=== PATIENT | female | born 1950 | race Caucasian/White ===

== ENCOUNTER 2017-09-06 02:12 | Emergency (ER) | payer OTHER ==
[2017-09-06 02:19] VITALS: BP 128/74; PULSE 79; TEMP 98; BMI 31.6
--- NOTE | 2017-09-06 04:24 | PDOC ---
History of Present Illness - General Chief Complaint: Pain, Acute Stated Complaint: NECK PAIN/SPASMS Time Seen by Provider: 09/06/17 03:49 History Source: Patient Exam Limitations: No Limitations - History of Present Illness Initial Comments: 09/06/17 04:20 67 F with PMH s/p aortic valve replacement (2016), HTN, HLD, migraines, who presents to the ED c/o gradually worsening L-sided neck pain over the past two weeks. As per pt, her neck pain is a/w a throbbing sensation as well as spasms. She went to Dr. Troncoso recently and had a neck X-ray done which showed arthritis. She also had a CT neck done (end of Aug 2016) which revealed mid to moderate degenerative changes with b/l hypertrophy and impingement of C6 nerve roots. During this time, pt also endorses nausea (without emesis), generalized ARIZMENDI, and dizziness. Otherwise, denies fever, chills, or changes in urinary or bowel function. PMH: as above PsxH: as above, anterior cervical decompression () meds: procardia XL 90mg qd, lisinopril 40mg qd, metoprolol 25mg BID, fish oil 1200mg qd, Calcium and vitamin D 1200 mg, Lipitor 40mg qd, aspirin 81 mg qd allergies: sulfa, percocets, nsaids- throat closes up, emesis, erythema FH: mother - DM, HTN. 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 Stopped smoking 2 yrs ago, but had smoked 5 cigs/day for 15 yrs prior. Rarely drinks alcohol, denies recreational drug use Past History - Past Medical History Allergies/Adverse Reactions: Allergies Allergy/AdvReac Type Severity Reaction Status Date / Time latex Allergy Severe Difficulty Verified 07/21/15 08:48 Breathing Sulfa (Sulfonamide Allergy Severe Swelling Verified 07/21/15 08:48 Antibiotics) oxycodone HCl [From Percocet] Allergy Mild NAUSEA/VOMI Verified 07/21/15 08:48 TING NSAIDS (Non-Steroidal Allergy Difficulty Verified 07/21/15 08:48 Anti-Inflamma Breathing Home Medications: Ambulatory Orders Acetaminophen [Tylenol .Regular Strength -] 650 mg PO Q6H PRN #0 tablet Lisinopril [Prinivil] 20 mg PO DAILY #0 tablet 11/17/13 Atenolol [Tenormin -] 25 mg PO DAILY 06/26/14 Atorvastatin Ca [Lipitor] 10 mg PO DAILY 06/26/14 Docosahexanoic Acid/Epa [Fish Oil Softgel] 1 each PO BID 06/26/14 Multivitamins [Multivit ([facility] Formulary)] 1 tab PO DAILY 06/26/14 Nifedipine [Procardia Xl] 90 mg PO DAILY 06/26/14 Salmeterol/Fluticasone [Advair 250Mcg/50Mcg -] 1 inh PO BID 06/26/14 Diphenhydramine HCl [Benadryl Capsule -] 25 mg PO Q6H #30 capsule 08/18/14 EPINEPHrine (EPI-PEN 0.3MG) [Epipen 0.3MG -] 0.3 mg IM PRN PRN #2 syr 08/18/14 Ranitidine HCl [Zantac 75] 75 mg PO DAILY #4 tablet 08/18/14 predniSONE [Deltasone -] 40 mg PO DAILY #8 tablet 08/18/14 predniSONE [Deltasone -] 40 mg PO DAILY #8 tablet 08/29/14 Ondansetron HCl [Zofran] 4 mg PO DAILY PRN #8 tablet 09/06/17 Tramadol HCl [Ultram] 50 mg PO DAILY PRN #15 tablet MDD 50 09/06/17 Tramadol HCl [Ultram] 50 mg PO QID #20 tablet MDD 200 09/06/17 Cardiac Disorders: Yes (MURMUR) HTN: Yes Hypercholesterolemia: Yes - Surgical History Cardiac Surgery: Yes (VALVE REPLACE: 08/15/14) - Immunization History Immunization Up to Date: Yes - Suicide/Smoking/Psychosocial Hx Smoking Status: Yes Smoking History: Never smoked Have you smoked in the past 12 months: No Number of Cigarettes Smoked Daily: 2 If you are a former smoker, when did you quit?: 2 YRS Information on smoking cessation initiated: No 'Breaking Loose' booklet given: 11/13/13 Hx Alcohol Use: No Drug/Substance Use Hx: No Substance Use Type: None Hx Substance Use Treatment: No Review of Systems - Review of Systems Able to Perform ROS?: Yes Is the patient limited Luxembourgish proficient: No ABD/GI: Yes: Nausea Musculoskeletal: Yes: Neck Pain Neurological: Yes: Headache All Other Systems: Reviewed and Negative *Physical Exam - Vital Signs Last Vital Signs Temp Pulse Resp BP Pulse Ox 98.0 F 79 18 128/74 98 09/06/17 02:16 09/06/17 02:16 09/06/17 02:16 09/06/17 02:16 09/06/17 02:16 - Physical Exam General Appearance: Yes: Other (+neck spasms, appears uncomfortable ) HEENT: positive: EOMI, DELLA Neck: positive: Tender (+TTP L side, +neck spasms ) Respiratory/Chest: positive: Lungs Clear, Normal Breath Sounds Cardiovascular: positive: Regular Rhythm, Regular Rate, S1, S2 Vascular Pulses: Dorsalis-Pedis (R): 2+, Doralis-Pedis (L): 2+ Musculoskeletal: positive: Decreased Range of Motion (+decreased active and passive ROM in L neck ) Neurologic: positive: tdp displays analyst II-XII NML intact Medical Decision Making - Medical Decision Making 09/06/17 04:39 67 F with PMH s/p aortic valve replacement (2016), HTN, HLD, migraines, who presents to the ED c/o gradually worsening L-sided neck pain over the past two weeks. Pt most likely with sx of cervical nerve impingement - seen on CT. Will send home with zofran and tramadol and suggest f/u with Dr. Troncoso. *DC/Admit/Observation/Transfer Diagnosis at time of Disposition: Neck muscle spasm - Discharge Dispostion Disposition: HOME Condition at time of disposition: Stable Admit: No - Prescriptions Prescriptions: Ondansetron HCl [Zofran] 4 mg PO DAILY PRN #8 tablet PRN Reason: Nausea Tramadol HCl [Ultram] 50 mg PO DAILY PRN #15 tablet MDD 50 PRN Reason: Moderate Pain Tramadol HCl [Ultram] 50 mg PO QID #20 tablet MDD 200 - Referrals Referrals: Cleveland Gan MD [Primary Care Provider] - - Patient Instructions Additional Instructions: You were in the emergency room for neck spasms. You recently had a CT done which revealed moderate degenerative disc disease with bilateral hypertrophy, causing possible impingement of your C6 nerve roots. This most likely explains your pain. We are sending a prescription for tramadol and zofran to your pharmacy. We suggest that you follow up with your primary doctor, Dr. Troncoso in a week to go over your CT results in depth. We hope you feel better soon. - Post Discharge Activity Forms/Work/School Notes: Back to Work
--- NOTE | 2017-09-06 04:27 | PDOC ---
Attending Attestation - HPI HPI: 09/06/17 04:34 The patient is a 67 year old female with a past medical history of HTN, hyperlipidemia, and aortic valve replacement (2016) who presents to the emergency department with gradually worsening neck pain for 2 weeks. The patient describes her pains as spasm and stiffness. She note that she recently visited with Dr. Gan, received a CT, and was diagnosed with pinched C6 nerve roots. She endorses associated difficulty moving her neck and nausea. She denies any vomiting or other associated symptoms. - Medical Decision Making 09/06/17 04:34 Documentation prepared by Alberto Eagle, acting as medical unit secretary for Vitor Salcedo DO. <Alberto Eagle - Last Filed: 09/06/17 04:34> - Resident Resident Name: Emi Kingston - ED Attending Attestation I have performed the following: I have examined & evaluated the patient, The case was reviewed & discussed with the resident, I agree w/resident's findings & plan, Exceptions are as noted - Physicial Exam PE: 09/06/17 04:44 *Physical Exam General Appearance: Yes: Appropriately Dressed. No: Apparent Distress, Intoxicated HEENT: positive: EOMI, DELLA, Normal ENT Inspection, Normal Voice, TMs Normal, Pharynx Normal. negative: Pale Conjunctivae, Photophobia, Scleral Icterus (R), Scleral Icterus (L) Neck: positive: Trachea midline, Normal Thyroid, Supple. negative: Tender, Rigid, Carotid bruit, Stridor, Lymphadenopathy (R), Lymphadenopathy (L), Thyromegaly Respiratory/Chest: positive: Lungs Clear, Normal Breath Sounds. negative: Chest Tender, Respiratory Distress, Accessory Muscle Use, Labored Respiration, RES, Crackles, Rales, Rhonchi, Stridor, Wheezing, Dullness Cardiovascular: positive: Regular Rhythm, Regular Rate, S1, S2. negative: Edema , JVD, Murmur, Bradycardia, Tachycardia Vascular Pulses: Dorsalis-Pedis (R): 2+, Doralis-Pedis (L): 2+ Gastrointestinal/Abdominal: positive: Normal Bowel Sounds, Flat, Soft. negative : Tender, Organomegaly, Pulsatile Mass, Increased Bowel Sounds, Decreased BS, Distended, Guarding, Rebound, Hernia, Hepatomegaly, Spleenomegaly Lymphatic: negative: Adenopathy, Tenderness Musculoskeletal: positive: Normal Inspection. negative: CVA Tenderness, Decreased Range of Motion Extremity: positive: Normal Capillary Refill, Normal Inspection, Normal Range of Motion, Pelvis Stable. negative: Tender, Pedal Edema, Swelling, Erythema Integumentary: positive: Normal Color, Dry, Warm. 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 negative: EOM Palsy, Facial Droop, Sensory Deficit <Vitor Salcedo - Last Filed: 09/06/17 04:44>
[2017-09-06] MEDS ORDERED: traMADol HCL 50 MG TABLET PO ONE (04:31)
[2017-09-06] MEDS ORDERED: ONDANSETRON 4 MG/2 ML VIAL IVPUSH ONE (04:32)
[2017-09-06] MEDS ORDERED: ONDANSETRON *ODT* 4 MG TABLET SL ONE (04:46)
[2017-09-06] MEDS ORDERED: traMADol HCL 50 MG TABLET ONE (04:46)
[2017-09-06] MEDS ORDERED: ONDANSETRON *ODT* 4 MG TABLET ONE (04:47)
== END 2017-09-06 05:06 | disposition home or self-care (01) ==
LOC: JER 02:12
DX: M62.838 Other muscle spasm (principal); M46.82 Other specified inflammatory spondylopathies, cervical region; I10 Essential (primary) hypertension; E78.00 Pure hypercholesterolemia, unspecified; R01.1 Cardiac murmur, unspecified; Z95.2 Presence of prosthetic heart valve; Z87.891 Personal history of nicotine dependence
CPT/HCPCS: 99281-25

== ENCOUNTER 2018-03-13 16:35 | Emergency (ER) | payer OTHER ==
[2018-03-13 16:42] VITALS: BMI 33.7
--- NOTE | 2018-03-13 16:42 | PDOC ---
Rapid Medical Evaluation Time Seen by Provider: 03/13/18 16:39 Medical Evaluation: Allergies Allergy/AdvReac Type Severity Reaction Status Date / Time latex Allergy Severe Difficulty Verified 07/21/15 08:48 Breathing Sulfa (Sulfonamide Allergy Severe Swelling Verified 07/21/15 08:48 Antibiotics) oxycodone HCl [From Percocet] Allergy Mild NAUSEA/VOMI Verified 07/21/15 08:48 TING NSAIDS (Non-Steroidal Allergy Difficulty Verified 07/21/15 08:48 Anti-Inflamma Breathing 03/13/18 16:40 Pt c/o: sob since this am, lt sidied cp last night resolved within minutes, states increased stress x 2 weeks, no fever, calf pain, hx of htn and asthma pt on brief exam: LCTA, RRR, vss, no LLE edema Pt ordered for: pt to proceed to the ED Discharge Disposition - Diagnosis Shortness of breath - Referrals - Patient Instructions - Post Discharge Activity
--- NOTE | 2018-03-13 19:18 | PDOC ---
Attending Attestation - HPI HPI: 03/13/18 20:10 The patient is a 68 year old female, with a significant past medical history of HTN, HLD, Aortic valve replacement 2014, who presents to the ED complaining of shortness of breath for the past 2-3 weeks that has exacerbated today. She notes that she had a fever previously and her primary care provider prescribed her a Z-Dimitrios. She reports that humid environments seem to exacerbate her shortness of breath. She also reports chest pain and a mild cough which is productive of a clear sputum. She notes that her chest pain last night was mild , without radiation or modifying factors. The patient denies headache and dizziness. Denies fever, chills, nausea, vomiting, diarrhea or constipation. Denies dysuria, frequency, urgency and hematuria. Allergies: Sulfa, latex, percocer, NSAIDS Past surgical history: Valve replacement Social History: occasional alcohol use. Quit smoking 2014. - Physicial Exam PE: 03/13/18 20:11 Constitutional: Awake, alert, oriented. No acute distress. Head: Normocephalic. Atraumatic Eyes: PERRL. EOMI. Conjunctivae are not pale. ENT: Mucous membranes are moist and intact. Posterior pharynx without exudates or erythema. Uvula midline. Neck: Supple. Full ROM. No lymphadenopathy. Cardiovascular: Regular rate. Regular rhythm. S1, S2 regular. Distal pulses are 2+ and symmetric. Pulmonary/Chest: No evidence of respiratory distress. Clear to auscultation bilaterally No wheezing, rales or rhonchi. Abdominal: Soft and non-distended. There is no tenderness. No rebound, guarding or rigidity. No organomegaly. No palpable masses. Good bowel sounds. Back: No CVA tenderness. Musculoskeletal: No edema. No cyanosis. No clubbing. Full range of motion in all extremities. Nocalf tenderness. Radial/pedal pulses are intact and 2+ bilaterally Skin: Skin is warm and dry. No petechiae. No purpura. Neurological: Alert and oriented to person, place, and time. Cranial nerves II -XII are grossly intact. Normal speech. Strength is grossly symmetric. No sensory deficits. Psychiatric: Good eye contact. Normal interaction, affect and behavior. <Vitor English - Last Filed: 03/13/18 20:10> - Resident Resident Name: Alyse Lundberg - ED Attending Attestation I have performed the following: I have examined & evaluated the patient, The case was reviewed & discussed with the resident, I agree w/resident's findings & plan, Exceptions are as noted - Medical Decision Making 03/13/18 19:18 I, Dr. Rohini Coburn, DO, attest that this document has been prepared under my direction and personally reviewed by me in its entirety. I further attest, that it accurately reflects all work, treatment, procedures and medical decision -making performed by me. 03/13/18 20:38 a/p: 68yo female with SOB when she walks outside -recent URI, now with mild sob when she walks into the heat - reactive airway disease from humidity and recent URI -will send labs, ekg, cxr -will give nebulizer -will monitor and reassess -pt speaking in full sentences -sob resolves with AC -pt is nontoxic in appearance <Rohini Coburn - Last Filed: 03/13/18 20:40> Heart Score/ECG Review - ECG Intrepretation Comment:: 03/13/18 19:41 sinus at 77, nl axis, nl interval, t wave inversions avl otherwise no acute st/ t wave findings <Rohini Coburn - Last Filed: 03/13/18 20:40>
--- NOTE | 2018-03-13 19:36 | PDOC ---
History of Present Illness - General Chief Complaint: Shortness of Breath Stated Complaint: SHORTNESS OF BREATH Time Seen by Provider: 03/13/18 16:39 History Source: Patient Exam Limitations: No Limitations - History of Present Illness Initial Comments: 03/13/18 19:31 Pt is a 68yo f with PMH of HTN, HLD, Aortic valve replacement 2014 presenting to ED with SOB. Pt says she has been feeling SOB for the past 2-3 weeks. She had a fever originally, went to her PCP and given Zpak. She states that the humidity and hot weather seems to trigger SOB. She feels fine when she's in a cool room. No orthopnea or SOB with exertion when she's not outside. She admits to chest pain last night near the L breast but it did not radiate, not associated with diaphoresis. She has had cough productive of clear sputum. She denies chest pain, pain radiating to the back or neck, fever, congestion, leg pain, new leg swelling, recent travel. PCP: Malik PMH: see hpi PSH: see hpi Meds: excedrin, metoprolol, lipitor Allergies: narcotics, motrin Social: occasional alcohol use. Quit smoking 2014. Past History - Past Medical History Allergies/Adverse Reactions: Allergies Allergy/AdvReac Type Severity Reaction Status Date / Time latex Allergy Severe Difficulty Verified 03/13/18 16:42 Breathing Sulfa (Sulfonamide Allergy Severe Swelling Verified 03/13/18 16:42 Antibiotics) oxycodone HCl [From Percocet] Allergy Mild NAUSEA/VOMI Verified 03/13/18 16:42 TING NSAIDS (Non-Steroidal Allergy Difficulty Verified 03/13/18 16:42 Anti-Inflamma Breathing tramadol AdvReac Intermediate Nausea Verified 03/13/18 20:49 Home Medications: Ambulatory Orders Acetaminophen [Tylenol .Regular Strength -] 650 mg PO Q6H PRN #0 tablet Lisinopril [Prinivil] 20 mg PO DAILY #0 tablet 11/17/13 Atenolol [Tenormin -] 25 mg PO DAILY 06/26/14 Atorvastatin Ca [Lipitor] 10 mg PO DAILY 06/26/14 Docosahexanoic Acid/Epa [Fish Oil Softgel] 1 each PO BID 06/26/14 Multivitamins [Multivit ([facility] Formul[facility])] 1 tab PO DAILY 06/26/14 Nifedipine [Procardia Xl] 90 mg PO DAILY 06/26/14 Salmeterol/Fluticasone [Advair 250Mcg/50Mcg -] 1 inh PO BID 06/26/14 Diphenhydramine HCl [Benadryl Capsule -] 25 mg PO Q6H #30 capsule 08/18/14 EPINEPHrine (EPI-PEN 0.3MG) [Epipen 0.3MG -] 0.3 mg IM PRN PRN #2 syr 08/18/14 Ranitidine HCl [Zantac 75] 75 mg PO DAILY #4 tablet 08/18/14 predniSONE [Deltasone -] 40 mg PO DAILY #8 tablet 08/18/14 predniSONE [Deltasone -] 40 mg PO DAILY #8 tablet 08/29/14 Ondansetron HCl [Zofran] 4 mg PO DAILY PRN #8 tablet 09/06/17 Tramadol HCl [Ultram] 50 mg PO DAILY PRN #15 tablet MDD 50 09/06/17 Tramadol HCl [Ultram] 50 mg PO QID #20 tablet MDD 200 09/06/17 Albuterol Sulfate Inhaler - [Ventolin HFA Inhaler -] 1 puff IH DAILY #1 inhaler 03/13/18 Asthma: Yes Cardiac Disorders: Yes (MURMUR) COPD: No HTN: Yes Hypercholesterolemia: Yes - Surgical History Cardiac Surgery: Yes (VALVE REPLACE: 08/15/14) - Immunization History Immunization Up to Date: Yes - Suicide/Smoking/Psychosocial Hx Smoking Status: Yes Smoking History: Never smoked Have you smoked in the past 12 months: No Number of Cigarettes Smoked Daily: 2 If you are a former smoker, when did you quit?: 2 YRS 'Breaking Loose' booklet given: 11/13/13 Hx Alcohol Use: No Drug/Substance Use Hx: No Substance Use Type: None Hx Substance Use Treatment: No Review of Systems - Review of Systems Constitutional: No: Chills, Fever, Weakness HEENTM: No: Nose Congestion, Throat Pain Respiratory: Yes: Cough (dry), Shortness of Breath (when outside). No: SOB with Exertion, SOB at Rest Cardiac (ROS): No: Chest Pain, Lightheadedness, Palpitations ABD/GI: No: Constipated, Diarrhea, Nausea, Vomiting, Abdominal cramping : No: Burning, Dysuria Musculoskeletal: No: Back Pain, Muscle Weakness Neurological: No: Headache, Numbness, Paresthesia, Tingling *Physical Exam - Vital Signs Last Vital Signs Temp Pulse Resp BP Pulse Ox 99.2 F 84 18 135/76 99 03/13/18 16:36 03/13/18 16:36 03/13/18 16:36 03/13/18 16:36 03/13/18 16:36 - Physical Exam General Appearance: Yes: Nourished, Appropriately Dressed. No: Apparent Distress HEENT: positive: EOMI, DELLA, Pharynx Normal. negative: Pale Conjunctivae, Scleral Icterus (R), Scleral Icterus (L), Nasal Congestion, Rhinorrhea Neck: positive: Trachea midline, Supple. negative: Carotid bruit, Lymphadenopathy (R), Lymphadenopathy (L) Respiratory/Chest: positive: Lungs Clear, Normal Breath Sounds. negative: Crackles, Rales, Rhonchi, Stridor Cardiovascular: positive: Regular Rhythm, Regular Rate, S1, S2. negative: JVD, Murmur Vascular Pulses: Carotid (R): 2+, Carotid (L): 2+, Dorsalis-Pedis (R): 2+, Doralis-Pedis (L): 2+ Gastrointestinal/Abdominal: positive: Normal Bowel Sounds, Soft. negative: Distended, Guarding, Rebound, Tenderness Musculoskeletal: negative: CVA Tenderness Extremity: positive: Normal Capillary Refill. 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 -Triggered by hot weather. EKG, CXR, labs. Will give duonebs. EKG: nsr. no st elevations or depressions, no peaked T waves CXR: no acute pathology. Most likely reactive airway -labs: wnl. 03/13/18 21:48 Pt getting duoneb. Will reevaluate 03/14/18 06:00 PT feeling much better. Will d/c with albuterol rx. Pt hemodynamically stable, symptom free and ambulatory. dc home . pt agreed with plan and understood return precautions. *DC/Admit/Observation/Transfer Diagnosis at time of Disposition: Shortness of breath - Discharge Dispostion Disposition: HOME Condition at time of disposition: Improved Decision to Admit order: No - Prescriptions Prescriptions: Albuterol Sulfate Inhaler - [Ventolin HFA Inhaler -] 1 puff IH DAILY #1 inhaler - Referrals Referrals: Cleveland Gan MD [Primary Care Provider] - - Patient Instructions Printed Discharge Instructions: DI for Shortness of Breath, DI for Reactive Airway Disease-Adult Additional Instructions: You were seen here today because you were feeling short of breath. Your blood work was normal and other work up was normal. Please follow up with Dr. Gan for further management within the next week. Please come back to the ED if: you continue to feel short of breath, you are unable to take a few steps before feeling short of breath, you develop chest pain, you feel dizzy or lightheaded or if any new concerning symptom develops. Thank you - Post Discharge Activity
[2018-03-13 20:03] LABS: BASO % 0.9 % (0-2.0); EOS % 2.3 % (0-4.5); HEMATOCRIT 38.9 % (32.4-45.2); HEMOGLOBIN 12.7 GM/dL (10.7-15.3); LYMPH % 35.5 % (8-40); MCH 27.6 pg (25.7-33.7); MCHC 32.7 g/dl (32.0-36.0); MEAN CELL VOLUME 84.4 fl (80-96); MEAN PLT VOLUME 8.6 fl (7.5-11.1); MONO % 6.7 % (3.8-10.2); NEUT % 54.6 % (42.8-82.8); PLATELET COUNT 219 K/MM3 (134-434); RBC 4.61 M/mm3 (3.60-5.2); RDW 13.8 % (11.6-15.6); WHITE BLOOD COUNT 6.9 K/mm3 (4.0-10.0)
[2018-03-13] MEDS ORDERED: ALBUTEROL SO4 2.5/IPRATROPIUM 0.5 INH SOL 3 ML VIAL.NEB. NEB ONE ×3 (20:23→21:29)
[2018-03-13 20:28] LABS: ALBUMIN 3.6 g/dl (3.4-5.0); ANION GAP 10 MMOL/L (8-16); BILIRUBIN,TOTAL 0.4 mg/dL (0.2-1.0); BLOOD UREA NITROGEN 19 mg/dL (7-18); CALCIUM 9.2 mg/dL (8.5-10.1); CHLORIDE 110 mmol/L (98-107); CO2 26 mmol/L (21-32); CREATININE 0.6 mg/dL (0.55-1.02); GLUCOSE,RANDOM 107 mg/dL (74-106); SGPT/ALT 22 U/L (12-78); SODIUM 146 mmol/L (136-145); TOT PROT 7.1 g/dl (6.4-8.2)
[2018-03-13 20:30] LABS: URINE APPEARANCE SLCLOUDY; URINE BILIRUBIN NEGATIVE (<2.0 mg/dL); URINE COLOR YELLOW; URINE GLUCOSE (UA) NEGATIVE (NEGATIVE); URINE KETONE NEGATIVE (NEGATIVE); URINE LEUK ESTERASE NEGATIVE (NEGATIVE); URINE NITRITE NEGATIVE (NEGATIVE); URINE PROTEIN NEGATIVE (NEGATIVE); URINE UROBILINOGEN NEGATIVE mg/dL (0.2-1.0)
[2018-03-13 20:31] LABS: ALK PHOS 111 U/L (45-117)
[2018-03-13 20:33] LABS: MAGNESIUM 2.2 mg/dL (1.8-2.4); POTASSIUM 4.4 mmol/L (3.5-5.1); SGOT/AST 19 U/L (15-37)
[2018-03-13 20:35] LABS: INR 1.06 (0.83-1.09)
[2018-03-13 22:27] VITALS: BP 135/70; PULSE 72; TEMP 98.7
--- NOTE | 2018-03-14 15:56 | EKG ---
Test Reason : Blood Pressure : / mmHG Vent. Rate : 077 BPM Atrial Rate : 077 BPM P-R Int : 144 ms QRS Dur : 074 ms QT Int : 376 ms P-R-T Axes : 049 007 071 degrees QTc Int : 425 ms NORMAL SINUS RHYTHM POSSIBLE LEFT ATRIAL ENLARGEMENT BORDERLINE ECG WHEN COMPARED WITH ECG OF 26-JUN-2014 11:34, NO SIGNIFICANT CHANGE WAS FOUND Confirmed by CARLA SAM MD ([id number]) on 03/14/2018 3:56:43 PM Referred By: Confirmed By:CARLA SAM MD
== END 2018-03-13 22:25 | disposition home or self-care (01) ==
LOC: JER 16:35
PROC: 3E0F7GC Introduction of Other Therapeutic Substance into Respiratory Tract, Via Natural or Artificial Opening (ICD-10-PCS; principal; 2018-03-13)
PROC: 3E0F7GC Introduction of Other Therapeutic Substance into Respiratory Tract, Via Natural or Artificial Opening (ICD-10-PCS; 2018-03-13)
DX: J45.909 Unspecified asthma, uncomplicated (principal); I10 Essential (primary) hypertension; E78.00 Pure hypercholesterolemia, unspecified; Z95.2 Presence of prosthetic heart valve
CPT/HCPCS: 36415; 71046-TC-FY; 80053; 81003; 82550; 83735; 84484; 85025; 85610; 93005; 93010; 99282-25; J7620

== ENCOUNTER 2018-05-15 13:58 | Emergency (ER) | payer OTHER ==
[2018-05-15 14:18] VITALS: TEMP 98.3; BMI 33.7
--- NOTE | 2018-05-15 15:40 | PDOC ---
History of Present Illness - General Chief Complaint: Head/Neck problem Stated Complaint: FACE AND LEFT ARM NUMBNESS Time Seen by Provider: 05/15/18 15:22 History Source: Patient Exam Limitations: No Limitations - History of Present Illness Initial Comments: 05/15/18 15:39 The patient is a 68F with a PMH of HTN, HLD, migraines, s/p aortic valve replacement (2016), who presents to the ER with complaints of L arm numbness and weakness, as well as entire face numbness that started 3 days ago. The patient states that the numbness is intermittent. Nothing exacerbates or alleviates the numbness. She admits to c-spine surgery "30 years ago" but denies any other symptoms. She denies any other focal numbness, tingling, or weakness, CP, SOB, nausea, vomiting, diaphoresis. Past History - Past Medical History Allergies/Adverse Reactions: Allergies Allergy/AdvReac Type Severity Reaction Status Date / Time latex Allergy Severe Difficulty Verified 05/15/18 14:18 Breathing Sulfa (Sulfonamide Allergy Severe Swelling Verified 05/15/18 14:18 Antibiotics) oxycodone HCl [From Percocet] Allergy Mild NAUSEA/VOMI Verified 05/15/18 14:18 TING NSAIDS (Non-Steroidal Allergy Difficulty Verified 05/15/18 14:18 Anti-Inflamma Breathing tramadol AdvReac Intermediate Nausea Verified 05/15/18 14:18 Home Medications: Ambulatory Orders Acetaminophen [Tylenol .Regular Strength -] 650 mg PO Q6H PRN #0 tablet Lisinopril [Prinivil] 20 mg PO DAILY #0 tablet 11/17/13 Atenolol [Tenormin -] 25 mg PO DAILY 06/26/14 Atorvastatin Ca [Lipitor] 10 mg PO DAILY 06/26/14 Docosahexanoic Acid/Epa [Fish Oil Softgel] 1 each PO BID 06/26/14 Multivitamins [Multivit ([facility] Formulary)] 1 tab PO DAILY 06/26/14 Nifedipine [Procardia Xl] 90 mg PO DAILY 06/26/14 Salmeterol/Fluticasone [Advair 250Mcg/50Mcg -] 1 inh PO BID 06/26/14 Diphenhydramine HCl [Benadryl Capsule -] 25 mg PO Q6H #30 capsule 08/18/14 EPINEPHrine (EPI-PEN 0.3MG) [Epipen 0.3MG -] 0.3 mg IM PRN PRN #2 syr 08/18/14 Ranitidine HCl [Zantac 75] 75 mg PO DAILY #4 tablet 08/18/14 predniSONE [Deltasone -] 40 mg PO DAILY #8 tablet 08/18/14 predniSONE [Deltasone -] 40 mg PO DAILY #8 tablet 08/29/14 Ondansetron HCl [Zofran] 4 mg PO DAILY PRN #8 tablet 09/06/17 Tramadol HCl [Ultram] 50 mg PO DAILY PRN #15 tablet MDD 50 09/06/17 Tramadol HCl [Ultram] 50 mg PO QID #20 tablet MDD 200 09/06/17 Albuterol Sulfate Inhaler - [Ventolin HFA Inhaler -] 1 puff IH DAILY #1 inhaler 03/13/18 Albuterol Sulfate [Proair Hfa] 1 - 2 puff IH QID PRN #1 hfa.aer.ad 03/14/18 Asthma: Yes Cardiac Disorders: Yes (MURMUR) COPD: No CHF: No HTN: Yes Hypercholesterolemia: Yes - Surgical History Cardiac Surgery: Yes (VALVE REPLACE: 08/15/14) - Immunization History Immunization Up to Date: Yes - Suicide/Smoking/Psychosocial Hx Smoking Status: Yes Smoking History: Never smoked Have you smoked in the past 12 months: No Number of Cigarettes Smoked Daily: 2 If you are a former smoker, when did you quit?: 2 YRS Information on smoking cessation initiated: No 'Breaking Loose' booklet given: 11/13/13 Hx Alcohol Use: No Drug/Substance Use Hx: No Substance Use Type: None Hx Substance Use Treatment: No Review of Systems - Review of Systems Able to Perform ROS?: Yes Comments:: 05/15/18 17:59 GENERAL/CONSTITUTIONAL: No fever or chills. No weakness. HEAD, EYES, EARS, NOSE AND THROAT: No change in vision. No ear pain or discharge. No sore throat. CARDIOVASCULAR: No chest pain, palpitations, or lightheadedness. RESPIRATORY: No cough, wheezing, shortness of breath, or hemoptysis. GASTROINTESTINAL: No nausea, vomiting, diarrhea, constipation, or abdominal pain. GENITOURINARY: No dysuria, frequency, hematuria, or change in urination. MUSCULOSKELETAL: No joint or muscle swelling or pain. No neck or back pain. SKIN: No rash or lesions. NEUROLOGIC: Positive for numbness in face and L arm and weakness in L arm. No headache, tingling, loss of consciousness, or change in strength/sensation. Is the patient limited Danish proficient: No *Physical Exam - Vital Signs Last Vital Signs Temp Pulse Resp BP Pulse Ox 98.3 F 79 16 156/66 100 05/15/18 14:14 05/15/18 14:14 05/15/18 14:14 05/15/18 14:14 05/15/18 14:14 - Physical Exam Comments: 05/15/18 18:08 GENERAL: Well developed, well nourished. Awake and alert. No acute distress. HEENT: Normocephalic, atraumatic. Hearing grossly normal. Moist mucous membranes. PERRLA, EOMI. No conjunctival pallor. Sclera are non-icteric. NECK: Supple. Full ROM. No JVD. CARDIOVASCULAR: Regular rate and rhythm. No murmurs, rubs, or gallops. PULMONARY: No evidence of respiratory distress. Lungs clear to auscultation bilaterally. No wheezing, rales or rhonchi. ABDOMINAL: Soft. Non-tender. Non-distended. No rebound or guarding. GENITOURINARY: No CVA tenderness bilaterally. MUSCULOSKELETAL: Normal range of motion at all joints. No bony deformities or tenderness. EXTREMITIES: No cyanosis. No clubbing. No edema. No calf tenderness or swelling. SKIN: Warm and dry. Normal capillary refill. No rashes. No jaundice. NEUROLOGICAL: Alert, awake, appropriate. Cranial nerves 2-12 grossly intact. No deficits to light touch and temperature in face, upper extremities and lower extremities. 5/5 strength in deltoids, biceps, triceps, quadriceps, hamstrings, and gastrocnemius. Normal speech. Gait is normal without ataxia. PSYCHIATRIC: Cooperative. Good eye contact. Appropriate mood and affect. ED Treatment Course - LABORATORY CBC & Chemistry Diagram: 05/15/18 16:25 05/15/18 16:25 - RADIOLOGY Radiology Studies Ordered: Category Date Time Status HEAD CT WITHOUT CONTRAST [CT] Stat CT Scan 05/15/18 15:35 Ordered CHEST PA & LAT [RAD] Stat Radiology 05/15/18 15:35 Ordered Medical Decision Making - Medical Decision Making 05/15/18 18:08 The patient is a 68F with a PMH of c-spine surgery who presents to the ER with 3 days of facial numbness, L arm numbness and tingling. Will order EKG, CXR, and labs including troponin to r/o ACS although much lower likelihood. CTH ordered to r/o intracranial pathology. Pending labs and imaging. 05/15/18 18:18 CBC, CMP, and trop negative. Pending CXR and CTH. Pt informed. 05/15/18 18:48 Case d/w attending who wants to add CTA of head and neck. Will place orders. CTH negative. 05/15/18 19:00 Pt signed out to Dr. Callaway for further care. *DC/Admit/Observation/Transfer - Referrals Referrals: Cleveland Gan MD [Primary Care Provider] - - Patient Instructions - Post Discharge Activity
[2018-05-15 16:39] LABS: BASO % 0.5 % (0-2.0); EOS % 0.8 % (0-4.5); HEMATOCRIT 40.8 % (32.4-45.2); HEMOGLOBIN 13.4 GM/dL (10.7-15.3); LYMPH % 31.3 % (8-40); MCH 27.7 pg (25.7-33.7); MCHC 32.9 g/dl (32.0-36.0); MEAN CELL VOLUME 84.4 fl (80-96); MEAN PLT VOLUME 8.4 fl (7.5-11.1); MONO % 5.9 % (3.8-10.2); NEUT % 61.5 % (42.8-82.8); PLATELET COUNT 217 K/MM3 (134-434); RBC 4.84 M/mm3 (3.60-5.2); RDW 13.3 % (11.6-15.6); WHITE BLOOD COUNT 7.1 K/mm3 (4.0-10.0)
--- NOTE | 2018-05-15 17:15 | PDOC ---
Attending Attestation - Resident Resident Name: Yevgeniy Santana - ED Attending Attestation I have performed the following: I have examined & evaluated the patient, The case was reviewed & discussed with the resident, I agree w/resident's findings & plan - HPI HPI: 05/15/18 18:36 The patient is a 68 year old female with a significant past medical history of hypertension, hyperlipidemia and aortic valve replacement(2015) and asthma who presents to the emergency department with intermittent left sided face and arm numbness for 3 days. She denies any facial droop or drooling. Patient denies any other symptoms. She denies any weakness or tingling sensation. He denies any fever, chills, nausea, vomiting, diarrhea, constipation or urinary symptoms. She denies any chest pain, shortness of breath, headache or dizziness. The patient denies any other complaints. - Physicial Exam PE: 05/15/18 18:43 Alert, oriented to person time and place. CN II-XII grossly intact. no facial droop. Strength prox and distally 5/5 throughout. Sensation grossly intact to light touch. MAI x4. No cerebellar signs, no dysmetria, bilateral finger to nose and heel to marks equal and symmetric. Speech clear. no neck tenderness, palp lateral left sided neck TTP, full range of motion, b/l shoulder shrug RRR, CTAB, Abdomen soft NTND WWP, MAI x4 equally. 05/15/18 19:49 - Medical Decision Making 05/15/18 19:49 68 YOF with nonfocal facial numbness, left arm tingling, x 3 days DDx. TIA, CVA, head lesion/[employer] bleed, ACS, electrolyte/metabolic derangements, infection, carotid stenosis/vertebral dissection, aneurysm Vital signs reviewed, wnl. reassuring Prior notes reviewed, including admissions, discharges and consultations. laboratory results and imaging reviewed, basic labs and lytes wnl, neg troponin , doubt ACS or arrhythmia CXR clear, no acute pathology. EKG normal sinus rhythm, no interval abnormalities, narrow QRS, ST and T wave segments and morphology normal. Nonspecific T wave abnormalities ED course: no acute events, remained stable and well appearing. CT head neg for CVA or bleed remains well, no objective neuro sx, gait stable, no cerebellar signs, alternative etiology could be cervical radiculopathy with neck pain and known disease. Dispo: s/o pending CTA to r/o dissection, aneurysm or carotid stenosis/plaque as etiology, 05/15/18 19:52
[2018-05-15 17:43] LABS: CREATININE 0.6 mg/dL (0.55-1.3)
[2018-05-15 17:44] LABS: ALBUMIN 3.8 g/dl (3.4-5.0)
[2018-05-15 18:39] LABS: BLOOD UREA NITROGEN 15 mg/dL (7-18); CHLORIDE 105 mmol/L (98-107); CO2 28 mmol/L (21-32); GLUCOSE,RANDOM 100 mg/dL (74-106); POTASSIUM 3.7 mmol/L (3.5-5.1); SODIUM 143 mmol/L (136-145)
[2018-05-15 18:40] LABS: ALK PHOS 118 U/L (45-117); ANION GAP 10 MMOL/L (8-16); BILIRUBIN,TOTAL 0.3 mg/dL (0.2-1); CALCIUM 8.9 mg/dL (8.5-10.1); SGOT/AST 13 U/L (15-37); SGPT/ALT 20 U/L (13-61); TOT PROT 7.3 g/dl (6.4-8.2)
--- NOTE | 2018-05-15 19:08 | PDOC ---
*Physical Exam - Vital Signs Last Vital Signs Temp Pulse Resp BP Pulse Ox 98.3 F 79 16 156/66 100 05/15/18 14:14 05/15/18 14:14 05/15/18 14:14 05/15/18 14:14 05/15/18 14:14 ED Treatment Course - LABORATORY CBC & Chemistry Diagram: 05/15/18 16:25 05/15/18 16:25 - ADDITIONAL ORDERS Additional order review: Laboratory Results 05/15/18 16:25 Sodium 143 Potassium 3.7 Chloride 105 Carbon Dioxide 28 Anion Gap 10 BUN 15 Creatinine 0.6 Creat Clearance w eGFR > 60 Random Glucose 100 Calcium 8.9 Total Bilirubin 0.3 AST 13 L ALT 20 Alkaline Phosphatase 118 H Creatine Kinase 109 Troponin I < 0.02 Total Protein 7.3 Albumin 3.8 05/15/18 16:25 RBC 4.84 MCV 84.4 MCHC 32.9 RDW 13.3 MPV 8.4 Neutrophils % 61.5 Lymphocytes % 31.3 Monocytes % 5.9 Eosinophils % 0.8 Basophils % 0.5 Medical Decision Making - Medical Decision Making 05/15/18 19:06 Received sign out from resident Dr. Santana. In short, pt is a 68 y /o female presenting to the ER complaining of three days of intermittent left side extremity and bilateral facial weakness. PMH includes HTN, HLD, and migraines. Pt is s/p aortic valve replacement (2015) and unknown type of remote cervical surgery. Labs unremarkable. Low suspicion for ACS. Awaiting CTA of head and neck. Anticipate discharge home. *DC/Admit/Observation/Transfer Diagnosis at time of Disposition: Left upper extremity numbness Headache Qualifiers: Headache type: unspecified Headache chronicity pattern: episodic headache Intractability: not intractable Qualified Code(s): R51 - Headache - Discharge Dispostion Disposition: HOME Condition at time of disposition: Stable Decision to Admit order: No - Referrals Referrals: Cleveland Gan MD [Primary Care Provider] - - Patient Instructions Printed Discharge Instructions: DI for Migraine Additional Instructions: Your imaging and blood work were normal today. A copy of your results from today 's visit is attached to this packet. Your symptoms are possibly related to your history of migraine headache. Please follow up with your primary care physician within the next 3 days. You will need to call to make an appointment. Take this packet with you to the appointment so your doctor can review the symptoms. Go to the nearest emergency department if your symptoms worsen or you feel as though you need additional emergency evaluation. Print Language: URDU - Post Discharge Activity
[2018-05-16 00:10] VITALS: BP 130/76; PULSE 64
--- NOTE | 2018-05-16 11:10 | EKG ---
Test Reason : Blood Pressure : / mmHG Vent. Rate : 074 BPM Atrial Rate : 074 BPM P-R Int : 152 ms QRS Dur : 072 ms QT Int : 368 ms P-R-T Axes : 045 -07 053 degrees QTc Int : 408 ms NORMAL SINUS RHYTHM POSSIBLE LEFT ATRIAL ENLARGEMENT BORDERLINE ECG WHEN COMPARED WITH ECG OF 13-MAR-2018 16:42, NO SIGNIFICANT CHANGE WAS FOUND Confirmed by CARLA SAM MD ([id number]) on 05/16/2018 11:09:54 AM Referred By: Confirmed By:CARLA SAM MD
== END 2018-05-16 00:09 | disposition home or self-care (01) ==
LOC: JER 13:58
PROC: 3E033GC Introduction of Other Therapeutic Substance into Peripheral Vein, Percutaneous Approach (ICD-10-PCS; principal; 2018-05-15)
DX: R20.0 Anesthesia of skin (principal); R51 Headache
CPT/HCPCS: 36415; 70450-TC; 70496-TC; 70498-TC; 71046-TC-FY; 80053; 82550; 84484; 85025; 93005; 93010; 99283-25

== ENCOUNTER 2018-09-24 09:38 | Emergency (ER) | payer OTHER ==
[2018-09-24 09:50] VITALS: TEMP 98.1; BMI 27.3
--- NOTE | 2018-09-24 11:52 | PDOC ---
History of Present Illness <Neeta Hernandez - Last Filed: 09/24/18 13:50> - History of Present Illness Initial Comments: 09/24/18 11:47 68-year-old female with a history of aortic valve replacement (2014), Hypertension, and hyperlipidemia presents to the emergency department with intermittent palpitations. Patient reports the palpitations started while she was sitting at work last night. 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 Reports the palpitations last for about a second or two at time and she feels like her heart is skipping a beat. She has not noticed any associated sxs. Has not noticed a trigger for the palpitations. She was able to complete her shift and presents to the emergency department afterwards for evaluation. Denies any chest pain or shortness of breath. Denies history of similar symptoms. Denies dizziness, diaphoresis. Denies any weakness or numbness. Denies nausea, vomiting , abd pain. <Errol Flores - Last Filed: 09/24/18 15:35> - General Chief Complaint: Palpitations Stated Complaint: SKIP BEATS Time Seen by Provider: 09/24/18 10:56 Past History <Neeta Hernandez - Last Filed: 09/24/18 13:50> - Past Medical History Asthma: Yes Cardiac Disorders: Yes (MURMUR) COPD: No CHF: No HTN: Yes Hypercholesterolemia: Yes - Surgical History Cardiac Surgery: Yes (VALVE REPLACE: 08/15/14) - Immunization History Immunization Up to Date: Yes - Suicide/Smoking/Psychosocial Hx Smoking Status: Yes Smoking History: Unknown if ever smoked Have you smoked in the past 12 months: No Number of Cigarettes Smoked Daily: 2 If you are a former smoker, when did you quit?: 2 YRS 'Breaking Loose' booklet given: 11/13/13 Hx Alcohol Use: No Drug/Substance Use Hx: No Substance Use Type: None Hx Substance Use Treatment: No <Errol Flores - Last Filed: 09/24/18 15:35> - Past Medical History Allergies/Adverse Reactions: Allergies Allergy/AdvReac Type Severity Reaction Status Date / Time latex Allergy Severe Difficulty Verified 09/24/18 09:41 Breathing Sulfa (Sulfonamide Allergy Severe Swelling Verified 09/24/18 09:41 Antibiotics) oxycodone HCl [From Percocet] Allergy Mild NAUSEA/VOMI Verified 09/24/18 09:41 TING NSAIDS (Non-Steroidal Allergy Difficulty Verified 09/24/18 09:41 Anti-Inflamma Breathing tramadol AdvReac Intermediate Nausea Verified 09/24/18 09:41 Home Medications: Ambulatory Orders Lisinopril [Prinivil] 20 mg PO DAILY #0 tablet 11/17/13 Atorvastatin Ca [Lipitor] 10 mg PO DAILY 06/26/14 Nifedipine [Procardia Xl] 90 mg PO DAILY 06/26/14 Aspirin [Lo-Dose Aspirin EC] 81 mg PO DAILY 09/24/18 Aspirin/Acetaminophen/Caffeine [Excedrin Migraine Caplet] 1 each PO ASDIR PRN Calcium Carbonate/Vitamin D3 [Calcium 500 + Vit D Caplet] 1 each PO ASDIR Metoprolol Succinate 25 mg PO BID 09/24/18 Review of Systems - Review of Systems Comments:: 09/24/18 11:52 GENERAL/CONSTITUTIONAL: No fever or chills. No weakness. HEAD, EYES, EARS, NOSE AND THROAT: No change in vision. No ear pain or discharge. No sore throat. GASTROINTESTINAL: No nausea, vomiting, diarrhea or constipation. GENITOURINARY: No dysuria, frequency, or change in urination. CARDIOVASCULAR: No chest pain or shortness of breath. +palpitations RESPIRATORY: No cough, wheezing, or hemoptysis. MUSCULOSKELETAL: No joint or muscle swelling or pain. No neck or back pain. SKIN: No rash NEUROLOGIC: No headache, vertigo, loss of consciousness, or change in strength/ sensation. ENDOCRINE: No increased thirst. No abnormal weight change. HEMATOLOGIC/LYMPHATIC: No anemia, easy bleeding, or history of blood clots. ALLERGIC/IMMUNOLOGIC: No hives or skin allergy. <Errol Flores - Last Filed: 09/24/18 15:35> *Physical Exam - Vital Signs Last Vital Signs Temp Pulse Resp BP Pulse Ox 98.1 F 67 18 151/67 99 09/24/18 09:49 09/24/18 09:49 09/24/18 09:49 09/24/18 09:49 09/24/18 10:24 <Neeta Hernandez - Last Filed: 09/24/18 13:50> - Vital Signs Last Vital Signs Temp Pulse Resp BP Pulse Ox 98.1 F 67 18 151/67 99 09/24/18 09:49 09/24/18 09:49 09/24/18 09:49 09/24/18 09:49 09/24/18 10:24 - Physical Exam Comments: 09/24/18 11:52 GENERAL: Awake, alert, and fully oriented, in no acute distress EYES: PERRLA, EOMI, sclera anicteric, conjunctiva clear ENT: Oropharynx clear without exudates. Moist mucosa NECK: Normal ROM, supple, no lymphadenopathy, JVD, or masses LUNGS: Breath sounds equal, clear to auscultation bilaterally. No wheezes, and no crackles HEART: Regular rate and rhythm, normal S1 and S2, no murmurs, rubs or gallops ABDOMEN: Soft, nontender, normoactive bowel sounds. No guarding, no rebound. No masses EXTREMITIES: Normal range of motion, no edema. No erythema, or tenderness NEUROLOGICAL: Normal speech, cranial nerves intact, equal strength and sensation b/l SKIN: Warm, Dry, normal turgor, no rashes or lesions noted. <Errol Flores - Last Filed: 09/24/18 15:35> Moderate Sedation - Procedure Monitoring Vital Signs: Procedure Monitoring Vital Signs Temperature 98.1 F 09/24/18 09:49 Pulse Rate 67 09/24/18 09:49 Respiratory Rate 18 09/24/18 09:49 Blood Pressure 151/67 09/24/18 09:49 O2 Sat by Pulse Oximetry (%) 99 09/24/18 10:24 <Neeta Hernandez - Last Filed: 09/24/18 13:50> - Procedure Monitoring Vital Signs: Procedure Monitoring Vital Signs Temperature 98.1 F 09/24/18 09:49 Pulse Rate 67 09/24/18 09:49 Respiratory Rate 18 09/24/18 09:49 Blood Pressure 151/67 09/24/18 09:49 O2 Sat by Pulse Oximetry (%) 99 09/24/18 10:24 <Errol Flores - Last Filed: 09/24/18 15:35> Heart Score/ECG Review #1 09/24/18 11:57 Twelve-lead EKG was performed and reviewed by me. Normal sinus rhythm, rate 66. Normal axis and intervals. No ST elevations or T-wave inversions. <Errol Flores - Last Filed: 09/24/18 15:35> ED Treatment Course - LABORATORY CBC & Chemistry Diagram: 09/24/18 13:05 09/24/18 13:05 - ADDITIONAL ORDERS Additional order review: 09/24/18 13:05 RBC Cancelled MCV Cancelled MCHC Cancelled RDW Cancelled MPV Cancelled Neutrophils % Cancelled Lymphocytes % Cancelled Monocytes % Cancelled Eosinophils % Cancelled Basophils % Cancelled <Neeta Hernandez - Last Filed: 09/24/18 13:50> - LABORATORY CBC & Chemistry Diagram: 09/24/18 14:33 09/24/18 13:05 - RADIOLOGY Radiology Studies Ordered: Category Date Time Status CHEST PA & LAT [RAD] Stat Radiology 09/24/18 11:40 Ordered <Errol Flores - Last Filed: 09/24/18 15:35> Medical Decision Making - Medical Decision Making 09/24/18 13:48 Dr. Echavarria was paged at the office requesting a call back for doctor to doctor consult. <Neeta Hernandez - Last Filed: 09/24/18 13:50> - Medical Decision Making 09/24/18 11:57 68yo F hx HTN, HL, AVR (2014) presents to the ED with intermittent palpitations. Vitals in ED wnl. Pt is very well appearing. EKG wnl, unchanged from prior. Plan to check labs for electrolyte, thyroid, blood count abnormalities and monitor on tele. Will call pt's cloud engagement partner Dr. Echavarria as well. 09/24/18 15:[address] Echavarria consulted, recommends that if tele okay and labs okay, pt can come in on Sunday to the office for a holter. Dr. Moore (his partner) came down to evaluate pt. Telemetry reviewed with Dr. Moore, shows random PVCs and NSVT, however all episodes of NSVT artifact and not Vtach. Pt threw 1-2 PVCs while here Pt reports no palpitations of sensation of skipped beats during 6 hour stay here SHe feels well, is clinically stable and requests DC home Return precautions given I discussed the physical exam findings, ancillary test results and final diagnoses with the patient. I answered all of the patient's questions. The patient was satisfied with the care received and felt comfortable with the discharge plan and treatment plan. The patient will call their primary care physician within 24 hours to arrange follow-up and will return to the Emergency Department with any new, persistent or worsening symptoms. <Errol Flores - Last Filed: 09/24/18 15:35> *DC/Admit/Observation/Transfer - Attestations Scribe Attestion: 09/24/18 13:50 Documentation prepared by Neeta Hernandez, acting as medical engineer for Errol Flores MD <Neeta Hernandez - Last Filed: 09/24/18 13:50> - Discharge Dispostion Decision to Admit order: No - Attestations Physician Attestion: 09/24/18 15:35 I, Dr. Errol Flores MD, attest that this document has been prepared under my direction and personally reviewed by me in its entirety. I further attest, that it accurately reflects all work, treatment, procedures and medical decision -making performed by me. <Errol Flores - Last Filed: 09/24/18 15:35> Diagnosis at time of Disposition: Palpitations - Discharge Dispostion Disposition: HOME Condition at time of disposition: Stable - Patient Instructions Printed Discharge Instructions: DI for Palpitations Additional Instructions: Follow up with Dr. Echavarria on Sunday10/01/18 for evaluation Follow up with your primary doctor in 1-2 days Return to the emergency department if you have any new, worsening, or concerning symptoms.
[2018-09-24 13:52] LABS: ALBUMIN 3.6 g/dl (3.4-5.0); ALK PHOS 139 U/L (45-117); ANION GAP 5 MMOL/L (8-16); BILIRUBIN,TOTAL 0.5 mg/dL (0.2-1); BLOOD UREA NITROGEN 18 mg/dL (7-18); CALCIUM 9.1 mg/dL (8.5-10.1); CHLORIDE 108 mmol/L (98-107); CO2 27 mmol/L (21-32); CREATININE 0.9 mg/dL (0.55-1.3); GLUCOSE,RANDOM 87 mg/dL (74-106); MAGNESIUM 2.4 mg/dL (1.8-2.4); POTASSIUM 4.1 mmol/L (3.5-5.1); SGOT/AST 46 U/L (15-37); SGPT/ALT 35 U/L (13-61); SODIUM 140 mmol/L (136-145); TOT PROT 7.7 g/dl (6.4-8.2)
--- NOTE | 2018-09-24 14:36 | CON.CARD ---
Consult Consult Specialty:: Cardiology Referred by:: ER Reason for Consultation:: palpitations - History of Present Illness Chief Complaint: palpitations History of Present Illness: 68-year-old female with a history of biologic aortic valve replacement (2014) at [facility] due to severe AI, Hypertension, and hyperlipidemia presents to the emergency department with intermittent palpitations. She described them as single "skips" without chest pain, sob, orthopnea, pnd, edema , dizziness or syncope. Exercise tolerance is good. Echo 06/07/18: nlef normal Bio AV, 18 mm grad, mild tr. - History Source History Provided By: Patient, Medical Record - Alcohol/Substance Use Hx Alcohol Use: No - Smoking History Smoking history: Unknown if ever smoked Have you smoked in the past 12 months: No Aproximately how many cigarettes per day: 2 If you are a former smoker, when did you quit?: 2 YRS Home Medications - Allergies Allergies/Adverse Reactions: Allergies Allergy/AdvReac Type Severity Reaction Status Date / Time latex Allergy Severe Difficulty Verified 09/24/18 09:41 Breathing Sulfa (Sulfonamide Allergy Severe Swelling Verified 09/24/18 09:41 Antibiotics) oxycodone HCl [From Percocet] Allergy Mild NAUSEA/VOMI Verified 09/24/18 09:41 TING NSAIDS (Non-Steroidal Allergy Difficulty Verified 09/24/18 09:41 Anti-Inflamma Breathing tramadol AdvReac Intermediate Nausea Verified 09/24/18 09:41 - Home Medications Home Medications: Ambulatory Orders Lisinopril [Prinivil] 20 mg PO DAILY #0 tablet 11/17/13 Atorvastatin Ca [Lipitor] 10 mg PO DAILY 06/26/14 Nifedipine [Procardia Xl] 90 mg PO DAILY 06/26/14 Aspirin [Lo-Dose Aspirin EC] 81 mg PO DAILY 09/24/18 Aspirin/Acetaminophen/Caffeine [Excedrin Migraine Caplet] 1 each PO ASDIR PRN Calcium Carbonate/Vitamin D3 [Calcium 500 + Vit D Caplet] 1 each PO ASDIR Metoprolol Succinate 25 mg PO BID 09/24/18 Family Disease History - Family Disease History Family History: Denies Review of Systems - Review of Systems Constitutional: reports: No Symptoms Eyes: reports: No Symptoms HENT: reports: No Symptoms Neck: reports: No Symptoms Cardiovascular: reports: Palpitations Respiratory: reports: No Symptoms Gastrointestinal: reports: No Symptoms Genitourinary: reports: No Symptoms Musculoskeletal: reports: No Symptoms Vital Signs: Vital Signs Temperature 98.1 F 09/24/18 09:49 Pulse Rate 67 09/24/18 09:49 Respiratory Rate 18 09/24/18 09:49 Blood Pressure 151/67 09/24/18 09:49 O2 Sat by Pulse Oximetry (%) 99 09/24/18 10:24 Constitutional: Yes: No Distress, Calm Eyes: Yes: Conjunctiva Clear, EOM Intact HENT: Yes: Atraumatic, Normocephalic Neck: Yes: Supple, Trachea Midline Respiratory: Yes: CTA Bilaterally Gastrointestinal: Yes: Normal Bowel Sounds, Soft Cardiovascular: Yes: Regular Rate and Rhythm JVD: No Carotid Bruit: No PMI: Non-Displaced Heart Sounds: Yes: S1, S2 Murmur: Yes: Systolic Murmur, Grade 2 Extremities: Yes: WNL Edema: No Peripheral Pulses WNL: Yes - Other Data Labs, Other Data: CBC, BMP 09/24/18 13:05 09/24/18 13:05 Troponin, BNP 09/24/18 13:05 Troponin I < 0.02 Troponin, BNP 09/24/18 13:05 Troponin I < 0.02 Imaging - Results EKG: Report Reviewed (nsr pvcs) Other: Report Reviewed (telemetry pvcs) Assessment/Plan 68-year-old female with a history of biologic aortic valve replacement (2014) at [facility] due to severe AI, Hypertension, and hyperlipidemia presents to the emergency department with intermittent palpitations. She described them as single "skips" without chest pain, sob, orthopnea, pnd, edema , dizziness or syncope. Exercise tolerance is good. Echo 06/07/18: nlef normal Bio AV, 18 mm grad, mild tr. PVC's are benign in this setting. No treatment. Outpatient follow up with Dr Echavarria.
[2018-09-24 14:42] LABS: EOS % 2.3 % (0-4.5); HEMATOCRIT 38.4 % (32.4-45.2); HEMOGLOBIN 12.8 GM/dL (10.7-15.3); LYMPH % 47.1 % (8-40); MCH 28.1 pg (25.7-33.7); MCHC 33.2 g/dl (32.0-36.0); MEAN CELL VOLUME 84.6 fl (80-96); MEAN PLT VOLUME 8.6 fl (7.5-11.1); MONO % 7.7 % (3.8-10.2); NEUT % 41.9 % (42.8-82.8); PLATELET COUNT 189 K/MM3 (134-434); RBC 4.55 M/mm3 (3.60-5.2); RDW 13.6 % (11.6-15.6); WHITE BLOOD COUNT 6.6 K/mm3 (4.0-10.0)
[2018-09-24 15:48] VITALS: BP 140/77; PULSE 66
--- NOTE | 2018-09-25 12:09 | EKG ---
Test Reason : Blood Pressure : / mmHG Vent. Rate : 066 BPM Atrial Rate : 066 BPM P-R Int : 146 ms QRS Dur : 074 ms QT Int : 400 ms P-R-T Axes : 048 005 051 degrees QTc Int : 419 ms NORMAL SINUS RHYTHM POSSIBLE LEFT ATRIAL ENLARGEMENT NONSPECIFIC ST ABNORMALITY ABNORMAL ECG WHEN COMPARED WITH ECG OF 15-MAY-2018 16:17, NO SIGNIFICANT CHANGE WAS FOUND Confirmed by KASH WHITFIELD, WILLIAM ([id number]) on 09/25/2018 12:08:25 PM Referred By: Confirmed By:WILLIAM HEWITT MD
== END 2018-09-24 15:49 | disposition home or self-care (01) ==
LOC: JER 09:38
DX: R00.2 Palpitations (principal); I49.3 Ventricular premature depolarization; I10 Essential (primary) hypertension; E78.00 Pure hypercholesterolemia, unspecified; E78.5 Hyperlipidemia, unspecified; Z95.4 Presence of other heart-valve replacement; Z88.8 Allergy status to other drugs, medicaments and biological substances
CPT/HCPCS: 36415; 71046-TC-FY; 80053; 83735; 84443; 84484; 85025; 85730; 93005; 93010; 99283-25

== ENCOUNTER 2020-06-01 05:04 | Day surgery (SDC) | payer OTHER ==
[2020-05-27 13:56] VITALS: BMI 32.9
[2020-06-01] MEDS ORDERED: AMPICILLIN SODIUM 2 GM VIAL ONE (10:54)
[2020-06-01 11:54] VITALS: TEMP 98.1
[2020-06-01 13:08] VITALS: BP 135/70; PULSE 71
== END 2020-06-01 13:35 | disposition home or self-care (01) ==
LOC: JASU-ENDO 05:04
PROVIDERS: ATTEND Internal Medicine Gastroenterology
PROC: 0DJD8ZZ Inspection of Lower Intestinal Tract, Via Natural or Artificial Opening Endoscopic (ICD-10-PCS; principal; 2020-06-01 11:30)
DX: Z12.11 Encounter for screening for malignant neoplasm of colon (principal); K57.30 Diverticulosis of large intestine without perforation or abscess without bleeding; K64.8 Other hemorrhoids

== ENCOUNTER 2020-08-08 14:05 | Emergency (ER) | payer OTHER ==
[2020-08-08 14:10] VITALS: BP 154/74; PULSE 74; TEMP 98; BMI 33.5
== END 2020-08-08 15:34 | disposition home or self-care (01) ==
LOC: JERFT 14:05
DX: M25.562 Pain in left knee (principal)
CPT/HCPCS: 73562-TC-LT-FY; 99284-25

== ENCOUNTER 2021-06-22 11:49 | Emergency (ER) | payer OTHER ==
[2021-06-22 12:35] VITALS: BP 117/73; PULSE 75; TEMP 97.8; BMI 33.5
== END 2021-06-22 15:06 | disposition home or self-care (01) ==
LOC: JERFT 11:49
DX: M25.562 Pain in left knee (principal); W11.XXXA Fall on and from ladder, initial encounter
CPT/HCPCS: 93971-TC; 99284-25

== ENCOUNTER 2022-06-30 13:18 | Emergency (ER) | payer OTHER ==
[2022-06-30 13:35] VITALS: BP 136/86; PULSE 88; RESP 18; TEMP 98.4; BMI 32.4
[2022-06-30] MEDS ORDERED: ACETAMINOPHEN 325 MG TABLET (FP) PO ONE (13:55)
[2022-06-30] MEDS ORDERED: ACETAMINOPHEN 325 MG TABLET (FP) ONE (13:56)
== END 2022-06-30 14:16 | disposition home or self-care (01) ==
LOC: JERFT 13:18
DX: S99.922A Unspecified injury of left foot, initial encounter (principal); W20.8XXA Other cause of strike by thrown, projected or falling object, initial encounter
CPT/HCPCS: 73630-TC-LT; 99283-25

== ENCOUNTER 2022-08-27 14:04 | Emergency (ER) | payer OTHER ==
[2022-08-27 14:07] VITALS: TEMP 98.1; BMI 32.4
[2022-08-27 14:29] LABS: EPI CELLS >36 /uL (0-25.1); HYALINE CASTS 3 /uL (0-3.1); PH,URINE 5.5 (5.0-8.0); URINE APPEARANCE TURBID; URINE BILIRUBIN 2+ (NEGATIVE); URINE COLOR ORANGE; URINE GLUCOSE (UA) NEGATIVE (NEGATIVE); URINE KETONE TRACE (NEGATIVE); URINE LEUK ESTERASE 1+ (NEGATIVE); URINE NITRITE NEGATIVE (NEGATIVE); URINE PROTEIN 2+ (NEGATIVE); URINE RBC 29471 /uL (0-23.9); URINE UROBILINOGEN 0.2 mg/dL (0.2-1.0); URINE WBC 81 /uL (0-25.8)
[2022-08-27 14:55] LABS: URINE BACTERIA 4.7 /uL (0-1359)
[2022-08-27] MEDS ORDERED: ONDANSETRON 4 MG/2 ML VIAL IVPUSH ONE (15:18)
[2022-08-27] MEDS ORDERED: ACETAMINOPHEN 1000 MG/100 ML BAG IVPB ONE (15:18)
[2022-08-27] MEDS ORDERED: ONDANSETRON 4 MG/2 ML VIAL ONE (15:25)
[2022-08-27 15:40] LABS: BASO % 0.5 % (0-2.0); EOS % 1.4 % (0-4.5); HEMATOCRIT 40.9 % (32.4-45.2); HEMOGLOBIN 13.4 GM/dL (10.7-15.3); MCH 27.7 pg (25.7-33.7); MCHC 32.9 g/dl (32.0-36.0); MEAN CELL VOLUME 84.3 fl (80-96); MEAN PLT VOLUME 8.1 fl (7.5-11.1); MONO % 6.7 % (3.8-10.2); NEUT % 53.4 % (42.8-82.8); PLATELET COUNT 221 10^3/uL (134-434); RBC 4.85 M/mm3 (3.60-5.2); RDW 13.3 % (11.6-15.6); WHITE BLOOD COUNT 8.3 K/mm3 (4.0-10.0)
[2022-08-27 16:09] LABS: CALCIUM 9.3 mg/dL (8.5-10.1)
[2022-08-27 16:10] LABS: ALBUMIN 3.9 g/dl (3.4-5.0); BLOOD UREA NITROGEN 15.4 mg/dL (7-18)
[2022-08-27 16:13] LABS: CREATININE 0.8 mg/dL (0.55-1.3)
[2022-08-27 16:15] LABS: BILIRUBIN,TOTAL 0.3 mg/dL (0.2-1); TOT PROT 7.6 g/dl (6.4-8.2)
[2022-08-27 19:25] VITALS: BP 123/82; PULSE 80; RESP 16
== END 2022-08-27 19:25 | disposition home or self-care (01) ==
LOC: JER 14:04
PROC: 3E033GC Introduction of Other Therapeutic Substance into Peripheral Vein, Percutaneous Approach (ICD-10-PCS; principal; 2022-08-27)
DX: N20.0 Calculus of kidney (principal); R31.9 Hematuria, unspecified
CPT/HCPCS: 36415; 74176-TC; 80053; 81003; 85025; 87086; 99285-25

== ENCOUNTER 2022-10-16 16:30 | Emergency (ER) | payer OTHER ==
[2022-10-16 16:38] VITALS: RESP 16; BMI 31.6
[2022-10-16 18:47] VITALS: BP 164/84; PULSE 82; TEMP 99.2
[2022-10-16] MEDS ORDERED: SODIUM CHLORIDE 0.9% 500 ML INFUS.BAG IV ONE (19:54)
[2022-10-16 20:15] LABS: BASO % 0.5 % (0-2.0); EOS % 0.8 % (0-4.5); HEMATOCRIT 41.4 % (32.4-45.2); HEMOGLOBIN 13.6 GM/dL (10.7-15.3); LYMPH % 27.3 % (8-40); MCH 27.2 pg (25.7-33.7); MCHC 32.9 g/dl (32.0-36.0); MEAN CELL VOLUME 82.8 fl (80-96); MEAN PLT VOLUME 8.7 fl (7.5-11.1); MONO % 4.5 % (3.8-10.2); NEUT % 66.9 % (42.8-82.8); PLATELET COUNT 210 10^3/uL (134-434); RBC 5.01 M/mm3 (3.60-5.2); RDW 13.4 % (11.6-15.6); WHITE BLOOD COUNT 8.7 K/mm3 (4.0-10.0)
[2022-10-16 20:17] LABS: INR 1.08 (0.83-1.09); PROTHROMBIN TIME (PATIENT) 12.5 SEC (9.7-13.0)
[2022-10-16 20:19] LABS: ACTIVATED PTT 31.1 SECONDS (25.2-36.5)
[2022-10-16 20:40] LABS: CALCIUM 10.1 mg/dL (8.5-10.1)
[2022-10-16 20:41] LABS: ALBUMIN 4.3 g/dl (3.4-5.0); BLOOD UREA NITROGEN 13.3 mg/dL (7-18)
[2022-10-16 20:44] LABS: CREATININE 0.8 mg/dL (0.55-1.3); PHOSPHOROUS 2.9 mg/dL (2.5-4.9)
[2022-10-16 20:45] LABS: BILIRUBIN,TOTAL 0.3 mg/dL (0.2-1); TOT PROT 8.2 g/dl (6.4-8.2)
== END 2022-10-16 22:32 | disposition home or self-care (01) ==
LOC: JER 16:30
DX: R00.2 Palpitations (principal); R20.2 Paresthesia of skin; Z20.822 Contact with and (suspected) exposure to COVID-19
CPT/HCPCS: 0241U-QW; 36415; 71046-TC-FY; 80053; 82962; 83735; 84100; 84484; 85025; 85610; 85730; 93005; 93010; 99285-25

== ENCOUNTER 2023-06-29 15:54 | Observation (INO) | payer OTHER ==
[2023-06-29 15:59] VITALS: BMI 31.6
[2023-06-29] MEDS ORDERED: SODIUM CHLORIDE 500 ML IV STA (17:59)
[2023-06-29 18:14] LABS: BASO % 0.5 % (0-2.0); EOS % 0.9 % (0-4.5); HEMATOCRIT 41.3 % (32.4-45.2); HEMOGLOBIN 13.5 GM/dL (10.7-15.3); MCH 27.4 pg (25.7-33.7); MCHC 32.7 g/dl (32.0-36.0); MEAN CELL VOLUME 83.8 fl (80-96); MEAN PLT VOLUME 8.5 fl (7.5-11.1); MONO % 5.8 % (3.8-10.2); NEUT % 67.8 % (42.8-82.8); PLATELET COUNT 208 10^3/uL (134-434); RBC 4.93 M/mm3 (3.60-5.2); RDW 13.4 % (11.6-15.6); WHITE BLOOD COUNT 9.2 K/mm3 (4.0-10.0)
[2023-06-29 18:32] LABS: POTASSIUM 4.1 mmol/L (3.5-5.1)
[2023-06-29 18:38] LABS: ALBUMIN 3.7 g/dl (3.4-5.0); BLOOD UREA NITROGEN 17.5 mg/dL (7-18); MAGNESIUM 2.2 mg/dL (1.8-2.4)
[2023-06-29 18:42] LABS: BILIRUBIN,TOTAL 0.4 mg/dL (0.2-1); TOT PROT 7.1 g/dl (6.4-8.2)
[2023-06-29 19:22] LABS: PH,URINE 5.5 (5.0-8.0); URINE APPEARANCE CLEAR; URINE BILIRUBIN NEGATIVE (NEGATIVE); URINE COLOR YELLOW; URINE GLUCOSE (UA) NEGATIVE (NEGATIVE); URINE KETONE NEGATIVE (NEGATIVE); URINE LEUK ESTERASE NEGATIVE (NEGATIVE); URINE NITRITE NEGATIVE (NEGATIVE); URINE PROTEIN NEGATIVE (NEGATIVE); URINE UROBILINOGEN 0.2 mg/dL (0.2-1.0)
[2023-06-29] MEDS ORDERED: CLOPIDOGREL BISULFATE 300 MG TABLET PO ONE (21:56)
[2023-06-29] MEDS ORDERED: CLOPIDOGREL BISULFATE 300 MG TABLET ONE (22:09)
[2023-06-29] MEDS ORDERED: ASPIRIN 325 MG TABLET PO ONE (22:25)
[2023-06-29] MEDS ORDERED: ASPIRIN 81 MG CHEWABLE TABLETS ONE (22:42)
[2023-06-30] MEDS ORDERED: ONDANSETRON 4 MG/2 ML VIAL IVPUSH ONE (01:23)
[2023-06-30] MEDS ORDERED: FAMOTIDINE 20 MG/50 ML IVPB 20 MG/50 ML MG IVPB ONE (01:23)
[2023-06-30] MEDS ORDERED: SODIUM CHLORIDE 1,000 ML IV STA (02:35)
[2023-06-30] MEDS ORDERED: SODIUM CHLORIDE 1,000 ML IV SCH (03:45)
[2023-06-30 06:19] LABS: HEMATOCRIT 34.3 % (32.4-45.2); HEMOGLOBIN 10.9 GM/dL (10.7-15.3); MCH 27.2 pg (25.7-33.7); MCHC 31.9 g/dl (32.0-36.0); MEAN CELL VOLUME 85.1 fl (80-96); MEAN PLT VOLUME 8.7 fl (7.5-11.1); PLATELET COUNT 153 10^3/uL (134-434); RBC 4.03 M/mm3 (3.60-5.2); RDW 13.2 % (11.6-15.6); WHITE BLOOD COUNT 7.7 K/mm3 (4.0-10.0)
[2023-06-30 06:25] LABS: POTASSIUM 3.2 mmol/L (3.5-5.1)
[2023-06-30 06:33] LABS: CALCIUM 8.2 mg/dL (8.5-10.1)
[2023-06-30 06:34] LABS: BLOOD UREA NITROGEN 14.4 mg/dL (7-18)
[2023-06-30 06:37] LABS: CREATININE 0.9 mg/dL (0.55-1.3); PHOSPHOROUS 3.6 mg/dL (2.5-4.9)
[2023-06-30 06:38] LABS: TOT PROT 5.4 g/dl (6.4-8.2)
[2023-06-30 06:43] LABS: ALBUMIN 2.8 g/dl (3.4-5.0); BILIRUBIN,TOTAL 0.3 mg/dL (0.2-1)
[2023-06-30] MEDS ORDERED: POTASSIUM CHLORIDE ORAL LIQUID 20 MEQ/15 ML PO ONE (10:00)
[2023-06-30] MEDS ORDERED: ENOXAPARIN NA (PORCINE) 40 MG/0.4 ML DISP.SYRIN SQ SCH (10:00)
[2023-06-30] MEDS ORDERED: ASPIRIN COATED 81 MG TABLET.EC PO SCH (10:00)
[2023-06-30] MEDS ORDERED: metoPROLOL SUCCINATE 25 MG TAB.SR.24H (FP) PO SCH (10:00)
[2023-06-30] MEDS ORDERED: metoPROLOL SUCCINATE 25 MG TAB.SR.24H (FP) PO ONE (10:28)
[2023-06-30] MEDS ORDERED: ASPIRIN COATED 81 MG TABLET.EC ONE (10:28)
[2023-06-30] MEDS ORDERED: POTASSIUM CHLORIDE ORAL LIQUID 20 MEQ/15 ML ONE (10:29)
[2023-06-30] MEDS ORDERED: ENOXAPARIN NA (PORCINE) 40 MG/0.4 ML DISP.SYRIN SQ ONE (10:29)
[2023-06-30 13:23] VITALS: BP 124/88; PULSE 89; RESP 18; TEMP 98.1
[2023-06-30] MEDS ORDERED: ATORVASTATIN CA 20 MG TABLET (FP) PO SCH (22:00)
== END 2023-06-30 19:17 | disposition short-term general hospital (02) ==
LOC: JER 15:54 → INTOOBSV 19:27 → JERBED 19:27
PROVIDERS: ADMIT Internal Medicine
PROC: 3E023GC Introduction of Other Therapeutic Substance into Muscle, Percutaneous Approach (ICD-10-PCS; principal; 2023-06-29)
PROC: 3E0337Z Introduction of Electrolytic and Water Balance Substance into Peripheral Vein, Percutaneous Approach (ICD-10-PCS; 2023-06-29)
DX: I95.89 Other hypotension (principal); R77.8 Other specified abnormalities of plasma proteins; R42 Dizziness and giddiness; I10 Essential (primary) hypertension; R01.1 Cardiac murmur, unspecified; I35.1 Nonrheumatic aortic (valve) insufficiency; E78.5 Hyperlipidemia, unspecified; Z91.040 Latex allergy status; Z88.5 Allergy status to narcotic agent; Z87.891 Personal history of nicotine dependence; Z88.2 Allergy status to sulfonamides
CPT/HCPCS: 0241U-QW; 36415; 70450-TC; 70496-TC; 70498-TC; 71046-TC-FY; 80053; 81003; 83735; 83880; 84100; 84484; 85025; 85027; 85379; 93005; 93010; 96360; 96361; 96372; 99285-25; G0378; Q9967

== ENCOUNTER 2023-07-09 20:20 | Emergency (ER) | payer OTHER ==
[2023-07-09 20:44] VITALS: BMI 33.3
[2023-07-09] MEDS ORDERED: methylPREDNISolone NA SUCC 125 MG/2 ML VIAL IVPUSH ONE (21:31)
[2023-07-09] MEDS ORDERED: methylPREDNISolone NA SUCC 125 MG/2 ML VIAL ONE (21:47)
[2023-07-09] MEDS ORDERED: ALBUTEROL SO4 2.5/IPRATROPIUM 0.5 INH SOL 3 ML VIAL.NEB. NEB ONE (21:47)
[2023-07-09] MEDS: ALBUTEROL SO4 2.5/IPRATROPIUM 0.5 INH SOL 3 ML VIAL.NEB. NEB SCH ×2 (21:54)
[2023-07-09 21:57] LABS: BASO % 0.9 % (0-2.0); EOS % 1.2 % (0-4.5); HEMATOCRIT 37.4 % (32.4-45.2); HEMOGLOBIN 11.9 GM/dL (10.7-15.3); LYMPH % 18.8 % (8-40); MCH 27.2 pg (25.7-33.7); MCHC 31.7 g/dl (32.0-36.0); MEAN CELL VOLUME 85.7 fl (80-96); MEAN PLT VOLUME 9.3 fl (7.5-11.1); MONO % 5.6 % (3.8-10.2); NEUT % 73.5 % (42.8-82.8); PLATELET COUNT 284 10^3/uL (134-434); RBC 4.36 M/mm3 (3.60-5.2); RDW 13.6 % (11.6-15.6); WHITE BLOOD COUNT 10.8 K/mm3 (4.0-10.0)
[2023-07-09 21:58] LABS: VENOUS BASE EXCESS -1.5 mmol/L (-2-2); VENOUS O2 SATURATION 80.6 % (70-80); VENOUS PCO2 44.8 mmHg (38-52); VENOUS PH 7.351 (7.310-7.410)
[2023-07-09 22:03] LABS: INR 2.03 (0.83-1.09); PROTHROMBIN TIME (PATIENT) 23.4 SEC (9.7-13.0)
[2023-07-09 22:06] LABS: ACTIVATED PTT 31.1 SECONDS (25.2-36.5)
[2023-07-09 22:16] LABS: CHLORIDE 107 mmol/L (98-107); SODIUM 141 mmol/L (136-145)
[2023-07-09 22:18] LABS: ANION GAP 10 mmol/L (4-13); BLOOD UREA NITROGEN 23.6 mg/dL (7-18); CALCIUM 8.6 mg/dL (8.5-10.1); CO2 24 mmol/L (21-32)
[2023-07-09 22:19] LABS: ALBUMIN 3.1 g/dl (3.4-5.0); GLUCOSE,RANDOM 191 mg/dL (74-106)
[2023-07-09 22:22] LABS: SGOT/AST 71 U/L (15-37); SGPT/ALT 86 U/L (13-61)
[2023-07-09 22:23] LABS: BILIRUBIN,TOTAL 0.5 mg/dL (0.2-1); TOT PROT 6.3 g/dl (6.4-8.2)
[2023-07-09 22:26] LABS: N-TERMINAL BNP 5876.9 pg/ml (5-125)
[2023-07-09] MEDS ORDERED: FUROSEMIDE 40 MG/4 ML INJECTABLE VIAL IVPUSH ONE (22:31)
[2023-07-09] MEDS ORDERED: FUROSEMIDE 40 MG/4 ML INJECTABLE VIAL ONE (22:36)
[2023-07-09 22:58] LABS: ALK PHOS 144 U/L (45-117)
[2023-07-10 00:38] VITALS: BP 146/62; PULSE 90; RESP 20; TEMP 98.7
== END 2023-07-10 01:02 | disposition short-term general hospital (02) ==
LOC: JER 20:20
PROC: 3E033GC Introduction of Other Therapeutic Substance into Peripheral Vein, Percutaneous Approach (ICD-10-PCS; principal; 2023-07-09)
PROC: 3E033GC Introduction of Other Therapeutic Substance into Peripheral Vein, Percutaneous Approach (ICD-10-PCS; 2023-07-09)
PROC: 3E0F7GC Introduction of Other Therapeutic Substance into Respiratory Tract, Via Natural or Artificial Opening (ICD-10-PCS; 2023-07-09)
DX: R06.02 Shortness of breath (principal); R05.9 Cough, unspecified; R06.2 Wheezing; R53.1 Weakness; I35.0 Nonrheumatic aortic (valve) stenosis; J98.01 Acute bronchospasm; Z20.822 Contact with and (suspected) exposure to COVID-19
CPT/HCPCS: 0241U-QW; 36415; 71045-TC-FY; 80053; 82550; 82553; 82803; 83880; 84484; 85025; 85610; 85730; 99285-25

== ENCOUNTER 2023-10-25 11:57 | Observation (INO) | payer OTHER ==
[2023-10-25 12:28] VITALS: BMI 32.4
[2023-10-25 13:10] LABS: BASO % 0.5 % (0-2.0); EOS % 1.1 % (0-4.5); HEMATOCRIT 40.4 % (32.4-45.2); HEMOGLOBIN 13.1 GM/dL (10.7-15.3); MCH 26.8 pg (25.7-33.7); MCHC 32.5 g/dl (32.0-36.0); MEAN CELL VOLUME 82.4 fl (80-96); MEAN PLT VOLUME 8.1 fl (7.5-11.1); MONO % 8.2 % (3.8-10.2); NEUT % 58.2 % (42.8-82.8); PLATELET COUNT 200 10^3/uL (134-434); RBC 4.91 M/mm3 (3.60-5.2); RDW 14.6 % (11.6-15.6); WHITE BLOOD COUNT 6.6 K/mm3 (4.0-10.0)
[2023-10-25 13:15] LABS: INR 1.7 (0.83-1.09); PROTHROMBIN TIME (PATIENT) 19.6 SEC (9.7-13.0)
[2023-10-25 13:17] LABS: ACTIVATED PTT 34.7 SECONDS (25.2-36.5)
[2023-10-25 13:18] LABS: PH,URINE 7.5 (5.0-8.0); URINE APPEARANCE CLEAR; URINE BILIRUBIN NEGATIVE (NEGATIVE); URINE COLOR YELLOW; URINE GLUCOSE (UA) NEGATIVE (NEGATIVE); URINE KETONE NEGATIVE (NEGATIVE); URINE NITRITE NEGATIVE (NEGATIVE); URINE PROTEIN TRACE (NEGATIVE); URINE UROBILINOGEN 0.2 mg/dL (0.2-1.0)
[2023-10-25 13:19] LABS: URINE LEUK ESTERASE NEGATIVE (NEGATIVE)
[2023-10-25] MEDS ORDERED: ACETAMINOPHEN INJECTION 100 ML IVPB ONE (13:34)
[2023-10-25] MEDS ORDERED: ONDANSETRON 4 MG/2 ML VIAL ONE (13:35)
[2023-10-25 13:40] LABS: CHOLESTEROL 157 mg/dL (50-200)
[2023-10-25 13:41] LABS: LDL CHOLESTEROL (ONLY SJRH) 88 mg/dL (5-100)
[2023-10-25 13:42] LABS: HDL CHOLESTEROL 52 mg/dL (40-60)
[2023-10-25] MEDS: ACETAMINOPHEN 1000 MG/100 ML BAG IVPB ONE (13:43)
[2023-10-25] MEDS: ONDANSETRON 4 MG/2 ML VIAL IVPUSH ONE (13:45)
[2023-10-25 13:49] LABS: POTASSIUM 3.8 mmol/L (3.5-5.1)
[2023-10-25 13:51] LABS: CALCIUM 9.2 mg/dL (8.5-10.1)
[2023-10-25 13:52] LABS: ALBUMIN 3.4 g/dl (3.4-5.0); BLOOD UREA NITROGEN 19.2 mg/dL (7-18); MAGNESIUM 2.2 mg/dL (1.8-2.4)
[2023-10-25 13:54] LABS: PHOSPHOROUS 3.3 mg/dL (2.5-4.9)
[2023-10-25 13:55] LABS: CREATININE 0.9 mg/dL (0.55-1.3)
[2023-10-25 13:56] LABS: BILIRUBIN,TOTAL 0.4 mg/dL (0.2-1); TOT PROT 6.9 g/dl (6.4-8.2)
[2023-10-25] MEDS: ATORVASTATIN CA 10 MG TABLET (FP) PO SCH (21:45)
[2023-10-25] MEDS: APIXABAN 5 MG TABLET PO SCH (21:45)
[2023-10-25] MEDS: ACETAMINOPHEN 325 MG TABLET (FP) PO PRN (21:59)
[2023-10-26 07:43] LABS: HEMATOCRIT 37.9 % (32.4-45.2); HEMOGLOBIN 12.1 GM/dL (10.7-15.3); MCH 26.6 pg (25.7-33.7); MCHC 31.9 g/dl (32.0-36.0); MEAN CELL VOLUME 83.3 fl (80-96); MEAN PLT VOLUME 8.5 fl (7.5-11.1); PLATELET COUNT 187 10^3/uL (134-434); RBC 4.55 M/mm3 (3.60-5.2); RDW 14.2 % (11.6-15.6); WHITE BLOOD COUNT 5.9 K/mm3 (4.0-10.0)
[2023-10-26 07:53] LABS: POTASSIUM 3.6 mmol/L (3.5-5.1)
[2023-10-26 07:55] LABS: CALCIUM 9.2 mg/dL (8.5-10.1)
[2023-10-26 07:56] LABS: ALBUMIN 3.2 g/dl (3.4-5.0); BLOOD UREA NITROGEN 13.4 mg/dL (7-18); MAGNESIUM 2.1 mg/dL (1.8-2.4)
[2023-10-26 07:59] LABS: CREATININE 0.8 mg/dL (0.55-1.3); PHOSPHOROUS 4.3 mg/dL (2.5-4.9)
[2023-10-26 08:00] LABS: BILIRUBIN,TOTAL 0.6 mg/dL (0.2-1); TOT PROT 6.4 g/dl (6.4-8.2)
[2023-10-26] MEDS: NIFEdipine E.R 60 MG TABLET PO SCH (09:19)
[2023-10-26] MEDS: TOPIRAMATE 25 MG TABLET PO SCH (09:20)
[2023-10-26] MEDS ORDERED: MECLIZINE HCL 12.5 MG TABLET PO PRN (14:50)
[2023-10-26] MEDS: ACETAMINOPHEN 1000 MG/100 ML BAG IVPB ONE (15:05)
[2023-10-26 21:39] VITALS: RESP 16
[2023-10-27 08:38] LABS: HEMATOCRIT 41.1 % (32.4-45.2); HEMOGLOBIN 13.2 GM/dL (10.7-15.3); MCH 26.8 pg (25.7-33.7); MCHC 32.1 g/dl (32.0-36.0); MEAN CELL VOLUME 83.4 fl (80-96); MEAN PLT VOLUME 8.4 fl (7.5-11.1); PLATELET COUNT 207 10^3/uL (134-434); RBC 4.93 M/mm3 (3.60-5.2); RDW 14.3 % (11.6-15.6); WHITE BLOOD COUNT 6.8 K/mm3 (4.0-10.0)
[2023-10-27 09:03] LABS: ALBUMIN 3.3 g/dl (3.4-5.0); BLOOD UREA NITROGEN 11.7 mg/dL (7-18); CALCIUM 9.3 mg/dL (8.5-10.1); MAGNESIUM 2.3 mg/dL (1.8-2.4)
[2023-10-27 09:06] LABS: PHOSPHOROUS 4.1 mg/dL (2.5-4.9)
[2023-10-27 09:07] LABS: CREATININE 0.9 mg/dL (0.55-1.3)
[2023-10-27 09:08] LABS: BILIRUBIN,TOTAL 0.4 mg/dL (0.2-1); TOT PROT 6.7 g/dl (6.4-8.2)
[2023-10-27 09:22] LABS: POTASSIUM 3.4 mmol/L (3.5-5.1)
[2023-10-27] MEDS: ONDANSETRON 4 MG/2 ML VIAL IVPUSH ONE (11:24)
[2023-10-27] MEDS: hydrOXYzine PAMOATE 50 MG CAPSULE (FP) PO ONE (13:19)
[2023-10-27 14:09] VITALS: BP 119/69; PULSE 67; TEMP 98.3
[2023-10-27] MEDS: diphenhydrAMINE HCL 25 MG CAPSULE (FP) PO ONE (15:48)
== END 2023-10-27 18:10 | disposition home or self-care (01) ==
LOC: JER 11:57 → INTOOBSV 14:10 → UNDOADMOB 14:10 → JERBED 14:10 → J4S 15:52 → JERBED 15:52 → J4S 10-26 11:59
PROVIDERS: ADMIT Internal Medicine; ATTEND Internal Medicine
PROC: 3E033NZ Introduction of Analgesics, Hypnotics, Sedatives into Peripheral Vein, Percutaneous Approach (ICD-10-PCS; principal; 2023-10-26)
PROC: 3E033GC Introduction of Other Therapeutic Substance into Peripheral Vein, Percutaneous Approach (ICD-10-PCS; 2023-10-26)
DX: I48.0 Paroxysmal atrial fibrillation (principal); I50.9 Heart failure, unspecified; E78.5 Hyperlipidemia, unspecified; G43.909 Migraine, unspecified, not intractable, without status migrainosus; Z79.01 Long term (current) use of anticoagulants; Z95.2 Presence of prosthetic heart valve; I11.0 Hypertensive heart disease with heart failure; I67.1 Cerebral aneurysm, nonruptured; I71.9 Aortic aneurysm of unspecified site, without rupture; Z87.891 Personal history of nicotine dependence; Z88.2 Allergy status to sulfonamides; Z88.5 Allergy status to narcotic agent; Z91.040 Latex allergy status
CPT/HCPCS: 36415; 70450-TC; 70496-TC; 70498-TC; 70551-TC; 80053; 80061; 81003; 82533; 82550; 82962; 83036; 83735; 84100; 84439; 84443; 84484; 85025; 85027; 85610; 85730; 86850; 86900; 86901; 87086; 93005; 93010; 96374; 96375; 96376; 99285-25; G0378; J0131

== ENCOUNTER 2024-02-16 11:38 | Emergency (ER) | payer OTHER ==
[2024-02-16 11:59] VITALS: BMI 33.3
[2024-02-16 12:58] VITALS: RESP 18
[2024-02-16 16:27] VITALS: BP 155/86; PULSE 65; TEMP 97.8
== END 2024-02-16 17:19 | disposition home or self-care (01) ==
LOC: JER 11:38
DX: I10 Essential (primary) hypertension (principal); Z87.891 Personal history of nicotine dependence
CPT/HCPCS: 93005; 93010; 99283-25

== ENCOUNTER 2024-02-19 10:55 | Emergency (ER) | payer OTHER ==
[2024-02-19 11:07] VITALS: RESP 18; TEMP 97; BMI 33.3
[2024-02-19] MEDS ORDERED: ONDANSETRON 4 MG/2 ML VIAL ONE (12:03)
[2024-02-19] MEDS ORDERED: NIFEdipine E.R 60 MG TABLET PO ONE (12:03)
[2024-02-19] MEDS ORDERED: ACETAMINOPHEN INJECTION 100 ML IVPB ONE (12:03)
[2024-02-19] MEDS: ONDANSETRON 4 MG/2 ML VIAL IVPUSH ONE (12:15)
[2024-02-19] MEDS: ACETAMINOPHEN 1000 MG/100 ML BAG IVPB ONE (12:15)
[2024-02-19] MEDS: NIFEdipine E.R 60 MG TABLET PO ONE (12:15)
[2024-02-19] MEDS: LACTATED RINGERS SOLUTION 1000 ML INFUS.BAG IV ONE (12:15)
[2024-02-19 12:22] LABS: BASO % 0.9 % (0-2.0); EOS % 1.1 % (0-4.5); HEMATOCRIT 39.9 % (32.4-45.2); HEMOGLOBIN 13.2 GM/dL (10.7-15.3); LYMPH % 32.2 % (8-40); MCH 27.8 pg (25.7-33.7); MEAN PLT VOLUME 8.7 fl (7.5-11.1); MONO % 6.5 % (3.8-10.2); NEUT % 59.3 % (42.8-82.8); PLATELET COUNT 222 10^3/uL (134-434); RBC 4.75 M/mm3 (3.60-5.2); RDW 13.3 % (11.6-15.6); WHITE BLOOD COUNT 6.6 K/mm3 (4.0-10.0)
[2024-02-19 12:37] LABS: CHLORIDE 105 mmol/L (98-107); SODIUM 137 mmol/L (136-145)
[2024-02-19 12:41] VITALS: BP 137/74; PULSE 60
[2024-02-19 12:41] LABS: ALBUMIN 3.5 g/dl (3.4-5.0); CALCIUM 9.3 mg/dL (8.5-10.1)
[2024-02-19 12:42] LABS: BLOOD UREA NITROGEN 9.7 mg/dL (7-18); CO2 31 mmol/L (21-32); GLUCOSE,RANDOM 105 mg/dL (74-106); MAGNESIUM 2.2 mg/dL (1.8-2.4)
[2024-02-19 12:45] LABS: SGOT/AST 92 U/L (15-37)
[2024-02-19 12:46] LABS: BILIRUBIN,TOTAL 0.4 mg/dL (0.2-1); TOT PROT 7.9 g/dl (6.4-8.2)
[2024-02-19 12:47] LABS: ALK PHOS 132 U/L (45-117)
[2024-02-19 13:06] LABS: ANION GAP 1 mmol/L (4-13); POTASSIUM 7.8 mmol/L (3.5-5.1); SGPT/ALT 27 U/L (13-61)
== END 2024-02-19 13:13 | disposition home or self-care (01) ==
LOC: JER 10:55
PROC: 3E033NZ Introduction of Analgesics, Hypnotics, Sedatives into Peripheral Vein, Percutaneous Approach (ICD-10-PCS; principal; 2024-02-19)
PROC: 3E033GC Introduction of Other Therapeutic Substance into Peripheral Vein, Percutaneous Approach (ICD-10-PCS; 2024-02-19)
DX: R51.9 Headache, unspecified (principal); R42 Dizziness and giddiness
CPT/HCPCS: 36415; 70450-TC; 80053; 83735; 85025; 99285-25; J0131

== ENCOUNTER 2024-03-30 12:34 | Observation (INO) | payer OTHER ==
[2024-03-30 12:42] VITALS: BMI 33.3
[2024-03-30 14:18] LABS: BASO % 0.8 % (0-2.0); EOS % 1.3 % (0-4.5); HEMATOCRIT 41.9 % (32.4-45.2); HEMOGLOBIN 13.8 GM/dL (10.7-15.3); LYMPH % 27.1 % (8-40); MCH 27.3 pg (25.7-33.7); MEAN CELL VOLUME 82.8 fl (80-96); MEAN PLT VOLUME 8.1 fl (7.5-11.1); MONO % 7.7 % (3.8-10.2); NEUT % 63.1 % (42.8-82.8); PLATELET COUNT 208 10^3/uL (134-434); RBC 5.07 M/mm3 (3.60-5.2); RDW 13.8 % (11.6-15.6); WHITE BLOOD COUNT 5.9 K/mm3 (4.0-10.0)
[2024-03-30 14:40] LABS: POTASSIUM 3.9 mmol/L (3.5-5.1)
[2024-03-30 14:42] LABS: ALBUMIN 3.8 g/dl (3.4-5.0); BLOOD UREA NITROGEN 15.1 mg/dL (7-18); CALCIUM 9.3 mg/dL (8.5-10.1)
[2024-03-30 14:46] LABS: CREATININE 0.9 mg/dL (0.55-1.3)
[2024-03-30 14:47] LABS: BILIRUBIN,TOTAL 0.5 mg/dL (0.2-1); TOT PROT 7.5 g/dl (6.4-8.2)
[2024-03-31] MEDS ORDERED: ACETAMINOPHEN 1000 MG/100 ML BAG IVPB PRN (00:13)
[2024-03-31] MEDS ORDERED: APIXABAN 5 MG TABLET ONE (00:24)
[2024-03-31] MEDS ORDERED: ATORVASTATIN CA 10 MG TABLET (FP) ONE (00:24)
[2024-03-31] MEDS: APIXABAN 5 MG TABLET PO SCH (00:31)
[2024-03-31] MEDS: metoPROLOL SUCCINATE 25 MG TAB.SR.24H (FP) PO SCH (00:31)
[2024-03-31] MEDS: ATORVASTATIN CA 10 MG TABLET (FP) PO SCH (00:31)
[2024-03-31] MEDS ORDERED: metoPROLOL SUCCINATE 25 MG TAB.SR.24H (FP) PO SCH (06:37)
[2024-03-31 07:40] LABS: HEMATOCRIT 39.6 % (32.4-45.2); HEMOGLOBIN 12.8 GM/dL (10.7-15.3); MCH 27.1 pg (25.7-33.7); MCHC 32.2 g/dl (32.0-36.0); MEAN PLT VOLUME 8.6 fl (7.5-11.1); PLATELET COUNT 195 10^3/uL (134-434); RBC 4.72 M/mm3 (3.60-5.2); RDW 13.7 % (11.6-15.6); WHITE BLOOD COUNT 6.5 K/mm3 (4.0-10.0)
[2024-03-31 07:46] LABS: POTASSIUM 3.3 mmol/L (3.5-5.1)
[2024-03-31 07:51] LABS: ALBUMIN 3.5 g/dl (3.4-5.0); BLOOD UREA NITROGEN 14.6 mg/dL (7-18); CALCIUM 9.2 mg/dL (8.5-10.1)
[2024-03-31 07:55] LABS: BILIRUBIN,TOTAL 0.8 mg/dL (0.2-1); CREATININE 0.9 mg/dL (0.55-1.3); PHOSPHOROUS 4.1 mg/dL (2.5-4.9); TOT PROT 6.8 g/dl (6.4-8.2)
[2024-03-31 10:54] VITALS: BP 157/84; PULSE 75; RESP 19; TEMP 97.3
[2024-03-31] MEDS: NIFEdipine E.R. 30 MG TABLET PO SCH (11:14)
== END 2024-03-31 11:53 | disposition home or self-care (01) ==
LOC: JER 12:34 → JERBED 21:22 → UNDOADMOB 21:22 → OBSVTOIN 23:55 → INTOOBSV 23:55 → JERBED 03-31 09:26
PROVIDERS: ADMIT Internal Medicine
DX: I48.91 Unspecified atrial fibrillation (principal); I11.0 Hypertensive heart disease with heart failure; E78.5 Hyperlipidemia, unspecified; I35.1 Nonrheumatic aortic (valve) insufficiency; I72.8 Aneurysm of other specified arteries; I50.9 Heart failure, unspecified; I35.0 Nonrheumatic aortic (valve) stenosis; G43.909 Migraine, unspecified, not intractable, without status migrainosus; R42 Dizziness and giddiness; Z88.8 Allergy status to other drugs, medicaments and biological substances; Z91.040 Latex allergy status
CPT/HCPCS: 36415; 70450-TC; 70496-TC; 80053; 82607; 83735; 84100; 84484; 85025; 85027; 93005; 93010; 99285-25; G0378; Q9967